=== PATIENT | female | born 1945 | race Caucasian/White ===

== ENCOUNTER → 2020-03-19 09:31 | Outpatient (CLI) | payer MEDICARE, SELFPAY ==
[2020-03-19 11:13] LABS: Hematocrit 44.9 % (37-47); Hemoglobin 14.1 g/dL (12.0-15.0); Mean Corp Hgb Conc 31.4 g/dL (32-36); Mean Corpuscular Volume 92.2 fL (81-99); Mean Platelet Vol. 9.7 fl (6.2-12.0); Platelet Count 218 K/mm3 (150-450); RBC Distribution Width CV 16.8 % (11.6-14.6); RBC Distribution Width SD 56.7 fl (35.1-43.9); Red Blood Count 4.87 M/mm3 (4.2-5.4); White Blood Count 6.9 K/mm3 (4.4-11.0)
[2020-03-19 11:35] LABS: Hemoglobin A1c 5.1 % (3.8-5.6)
[2020-03-19 11:43] LABS: ALB/GLOB Ratio 0.6 RATIO (0.9-2.4); AST(SGOT) 18 U/L (15-37); Alanine Aminotransfer ALT/SGPT 13 U/L (13-56); Albumin, Serum 2.8 g/dL (3.2-5.0); Alkaline Phosphatase 139 U/L (45-117); Anion Gap 6 (5-15); BUN 12 mg/dL (7-18); BUN/Creat Ratio 16.5 RATIO (10-20); Calcium,Total 8.6 mg/dL (8.5-10.1); Chloride 102 mmol/L (98-107); Cholesterol 178 mg/dL (200); Creatinine, Serum 0.73 mg/dL (0.55-1.02); EST Glomerular Filtration Rate 83 mL/min (>60); Est Glom Filt Rate - Afr Amer 101 mL/min (>60); Globulin 4.7 g/dL (2.2-4.2); Glucose 97 mg/dL (74-106); High Density Lipoprotein 38 mg/dL; Potassium 3.5 mmol/L (3.5-5.1); Protein, Total 7.5 g/dL (6.4-8.2); Sodium Level 138 mmol/L (136-145); Thyroid Stim Hormone (TSH) 9.78 uIU/mL (0.358-3.74); Triglycerides 160 mg/dL; Very Low Density Lipoprotein 32 mg/dL (5-40)
[2020-03-20 05:07] LABS: Hepatitis C Ab <0.1 s/co ratio (0.0-0.9)
== END ==
DX: Z11.59 Encounter for screening for other viral diseases (principal); R63.4 Abnormal weight loss; Z13.220 Encounter for screening for lipoid disorders; E03.9 Hypothyroidism, unspecified
CPT/HCPCS: 36415; 80053; 80061; 83036; 84443; 85027; 86803; 86804

== ENCOUNTER 2020-04-23 07:03 | Emergency (ER) | payer MEDICARE, SELFPAY ==
[2020-04-23 07:06] VITALS: BP 146/71; PULSE 118; RESP 24; TEMP 36.8; O2SAT 100; BMI 21.7
--- NOTE | 2020-04-23 07:43 | ED.VIS.GEN ---
History of Present Illness Chief Complaint: Upper Extremity Injury Informant: Patient Narrative: 75-year-old female presenting with right arm pain. She states this is chronically painful. Patient states that she was having difficulty getting off of the toilet this morning. Her son helped her up and caused worse pain in her right arm. She denies any other direct trauma. She denies paresthesias. Patient took nothing for pain prior to arrival. Past Medical History Primary Care Physician: KAREN ARREOLA [Other] Prior records reviewed: Yes Surgical History: noncontributory Lives: With Family Smoking Status: Never smoker Alcohol: None Drugs: None Review of Systems General: Denies: Chills, Fever, Sweats Eyes: Denies: Visual changes - bilaterally, Diplopia ENT: Denies: Rhinorrhea, Sore throat Cardiovascular: Denies: Chest pain, Palpitations Respiratory: Denies: Dyspnea, Cough, Dyspnea on exertion Gastrointestinal: Denies: Abdominal pain, Nausea, Vomiting, Diarrhea, Melena, Hematochezia Genitourinary: Denies: Dysuria, Hematuria, Frequency Musculoskeletal: Reports: Extremity Pain. Denies: Arthralgias, Neck pain, Swelling - Right arm pain Skin: Reports: Rash, Abscess Neurological: Denies: Headache, Parasthesia, Numbness Psych: Denies: Depression, Anxiety Physical Exam Vital Signs/Narrative: Vital Signs Temp Pulse Resp BP Pulse Ox 04/23/20 07:06 98.3 F 118 H 24 H 146/71 H 100 Inital Vital Signs reviewed: Yes General: Well nourished, No Acute Distress Head: Normocephalic, Atraumatic Eyes: Perrl, EOMI ENT: Moist mucous membranes, No rhinorrhea Cardiovascular: Regular rate, Regular rhythm Respiratory: No distress, CTA bilaterally Extremities: - - Tenderness to palpation right posterior upper arm. No deformity. No rash. No crepitance. Skin: Normal color, No rash. Negative for: Cyanosis, Diaphoresis Neurological: Alert, Oriented x3 Psychological: Normal affect, Normal Mood Diagnostic/Tx/Re-eval - Medical Decision Making Patient seen and evaluated on arrival for right arm pain. She states this is purely from her son trying to help her up. She states is chronically painful. There is no signs of trauma. Right humerus x-ray interpreted by myself shows no acute process. Radiology does agree. Patient was given a Lidoderm patch for her pain. She be discharged home in stable condition. Impression: Right arm strain ED Disposition - Plan for ED Patient: Disposition: Home or Assisted Living Instructions: ED Muscle Strain, Extremity Referrals: KAREN ARREOLA [Other]
--- NOTE | 2020-04-23 08:00 | RAD_ITS ---
STUDY: X-RAY - RIGHT HUMERUS REASON FOR EXAM: Female, 75 years old. CHRONIC PAIN- WORSE TODAY SINCE SON TRIED LIFTING HER FROM THE FLOOR TECHNIQUE: 2 view(s) of the humerus. COMPARISON: None. FINDINGS: Normal visualized humerus. There is no demonstrated fracture or osseous destructive process. There is no demonstrated soft tissue abnormality. RAD/Humerus min 2 Views IMPRESSION: Normal x-ray examination of the humerus. Electronically Signed: Jasiel Pradhan MD at 8:13 EST , Service support ,
[2020-04-23] MEDS: Lidocaine 5% Patch 1 PATCH TOPICAL (08:13)
[2020-04-23 08:44] VITALS: BP 137/68; PULSE 92; RESP 15; O2SAT 94
== END 2020-04-23 10:51 | disposition home or self-care (01) ==
PROVIDERS: Emergency Provider Student in an Organized Health Care Education/Training Program
DX: S46.911A Strain of unspecified muscle, fascia and tendon at shoulder and upper arm level, right arm, initial encounter (principal); X50.9XXA Other and unspecified overexertion or strenuous movements or postures, initial encounter; Y93.9 Activity, unspecified; Y92.002 Bathroom of unspecified non-institutional (private) residence as the place of occurrence of the external cause; Y99.9 Unspecified external cause status; G89.29 Other chronic pain
CPT/HCPCS: 73060; 99285

== ENCOUNTER 2020-04-25 12:08 | Inpatient (IN) | payer MEDICARE, MEDICAID, SELFPAY ==
[2020-04-25] VITALS (18 sets, daily range): BP systolic 97–141; BP diastolic 49–81; PULSE 102–117; RESP 16–32; TEMP 36.8–37.1; O2SAT 93–99; BMI 22.2; BMI 21.3
--- NOTE | 2020-04-25 12:26 | ED.RN ---
pt arrives to ed via ems. pt states she is currently homeless living with her son in a motel. per patient son is able to provide adequate care. pt arrives in same clothes from prior visit to ed. when asked about person hygiene she states that she hasn't been able to shower since last visit. consult with hospital correctional counselor/case manager placed. Lashanda Levin rn [id number]
--- NOTE | 2020-04-25 13:14 | EKG12_ITS ---
Test Reason : Blood Pressure : / mmHG Vent. Rate : 105 BPM Atrial Rate : 105 BPM P-R Int : 152 ms QRS Dur : 090 ms QT Int : 326 ms P-R-T Axes : 083 057 065 degrees QTc Int : 430 ms Sinus tachycardia with Premature atrial complexes Nonspecific ST & T wave abnormality Abnormal ECG Confirmed by MARU FLANAGAN, JUAN LUIS ([id number]), supervising editor news reel RUDY WHITTAKER ([id number]) on 04/28/2020 10:27:27 AM Referred By: DOMENIC Confirmed By:JUAN LUIS MAHONEY MD
--- NOTE | 2020-04-25 13:14 | RAD_ITS ---
STUDY: X-RAY CHEST REASON FOR EXAM: Female, 75 years old. TACHYCARDIA TECHNIQUE: AP COMPARISON: None. FINDINGS: EKG leads project over the chest. Lungs are underexpanded with elevation of left hemidiaphragm. Coarsening of the central pulmonary markings but no airspace consolidation. There is no demonstrated pleural abnormality. Normal size heart. Normal mediastinum and leslie. Normal visualized pulmonary arteries. Normal visualized aortic arch and descending thoracic aorta. There is demineralization of the osseous structures. Normal visualized ribs, clavicles, and shoulders. There is no demonstrated abnormality of the visualized soft tissue structures of the upper abdomen. RAD/Chest 1 View (Portable) IMPRESSION: No airspace consolidation or pleural effusion. Hypoinflation. Electronically Signed: Prince Laws MD (Brooks) at 14:25 EST , Service support ,
--- NOTE | 2020-04-25 13:26 | NURSING ---
NO PREVIOUS EKG DONE IN THE SYSTEM
--- NOTE | 2020-04-25 13:27 | ED.RN ---
Daughter chuyita called back. health history given over the phone. daughter spoke of addition concerns for patients self care. states she is drinking only soda and chocolate milk. daughter states she is also not eating. concerns brought attention. ramón boo rn [id number]
[2020-04-25] MEDS: 0.9% Normal Saline 1,000 ML 999 ML IV ×3 (13:57→17:44)
[2020-04-25 13:59] LABS: Absolute Lymphocyte Count 0.55 X10^3/uL (0.83-4.51); Absolute Neutrophil Count 14.7 X10^3/uL (2.0-7.7); Basophil# 0.05 X10^3/uL; Basophil% 0.3 % (0-1); Eosinophil# 0.11 X10^3/uL; Eosinophils% 0.7 % (0-5); Hemoglobin 11.6 g/dL (12.0-15.0); Lymphocyte # 0.55 X10^3/ul (4.0); Lymphocyte % 3.4 % (19-41); Mean Corp Hgb Conc 31.4 g/dL (32-36); Mean Corpuscular Hgb 28.3 pg (27.0-32.0); Mean Corpuscular Volume 90.2 fL (81-99); Mean Platelet Vol. 9.7 fl (6.2-12.0); Monocyte# 0.55 X10^3/uL; Monocyte% 3.4 % (0-10); NRBC Flagged by Analyzer 0 % (0-5); Neutrophil # 14.72 X10^3/uL (2.7-7.7); POSITIVE DIFFERENTIAL YES; Platelet Count 383 K/mm3 (150-450); RBC Distribution Width CV 17.1 % (11.6-14.6); RBC Distribution Width SD 56.9 fl (35.1-43.9); White Blood Count 16.2 K/mm3 (4.4-11.0)
[2020-04-25 14:03] LABS: Differential Indicated SCAN CRITERIA MET
[2020-04-25 14:16] LABS: ALB/GLOB Ratio 0.3 RATIO (0.9-2.4); AST(SGOT) 31 U/L (15-37); Alanine Aminotransfer ALT/SGPT 13 U/L (13-56); Albumin, Serum 1.7 g/dL (3.2-5.0); Alkaline Phosphatase 110 U/L (45-117); Anion Gap 8 (5-15); BUN 36 mg/dL (7-18); CPK Total, Creatine Kinase 62 U/L (26-192); Calcium,Total 9.3 mg/dL (8.5-10.1); Chloride 97 mmol/L (98-107); Creatinine, Serum 1.06 mg/dL (0.55-1.02); EST Glomerular Filtration Rate 54 mL/min (>60); Est Glom Filt Rate - Afr Amer 65 mL/min (>60); Estimated Creatinine Clearance 40.82 ml/min; Globulin 6.4 g/dL (2.2-4.2); Glucose 114 mg/dL (74-106); Potassium 4.1 mmol/L (3.5-5.1); Protein, Total 8.1 g/dL (6.4-8.2); Sodium Level 131 mmol/L (136-145)
[2020-04-25 14:17] LABS: Lactic Acid 3.8 mmol/L (0.4-1.9)
[2020-04-25 14:24] LABS: Differential Comment SCANNED; Erythrocyte Sedimentation Rate > 130 mm/hr (0-30)
--- NOTE | 2020-04-25 14:53 | ED.VIS.GEN ---
History of Present Illness Chief Complaint: Upper Extremity Injury Informant: Patient Onset: Days Context: Gradual Onset Timing: Continuous Narrative: Is a 75-year-old female with history of fibromyalgia and anxiety presenting with worsening right arm pain. Patient thinks it is a flareup of her fibromyalgia. States is worse with movement or direct palpation. She not take anything for pain at home. Patient is currently living in a hotel with her . Her daughter did call in stating there is concern for ability for her to care for herself. Patient denies any fever, chills, numbness, tingling, nausea or any other systemic symptoms. She was seen yesterday and had x-ray did not show any acute process. Patient was given a Lidoderm patch discharged home. She is requesting another Lidoderm patch. Past Medical History - Allergies and Home Meds Allergies/Adverse Reactions: Allergies No Known Allergies Allergy (Verified 04/25/20 13:47) Past Medical History: - - Anxiety, fibromyalgia Surgical History: noncontributory Smoking Status: Never smoker - Family History Maternal Family History: Reports: Cancer - breast Paternal Family History: Reports: - - pt did not know her father Review of Systems General: Reports: Malaise. Denies: Chills, Fever, Sweats Eyes: Denies: Visual changes - bilaterally, Diplopia ENT: Denies: Rhinorrhea, Sore throat Cardiovascular: Denies: Chest pain, Palpitations Respiratory: Denies: Dyspnea, Cough, Dyspnea on exertion Gastrointestinal: Denies: Abdominal pain, Nausea, Vomiting, Diarrhea, Melena, Hematochezia Genitourinary: Denies: Dysuria, Hematuria, Frequency Musculoskeletal: Reports: Extremity Pain - Right arm. Denies: Back pain Skin: Denies: Rash, Wounds Neurological: Denies: Headache, Weakness, Numbness Physical Exam Vital Signs/Narrative: Vital Signs Temp Pulse Resp BP Pulse Ox 04/25/20 14:31 117 H 18 116/70 98 04/25/20 14:19 98.6 F 117 H 16 116/70 99 04/25/20 13:47 98.4 F 04/25/20 13:45 116 H 32 H 98 04/25/20 12:10 98.2 F 114 H 16 127/73 H 98 Inital Vital Signs reviewed: Yes General: Well nourished, Well developed, No Acute Distress Head: Normocephalic, Atraumatic Eyes: Perrl, EOMI ENT: No rhinorrhea, Dry mucous membranes Neck: Supple, Nontender Cardiovascular: Regular rhythm, Tachycardia, Murmur Respiratory: No distress, CTA bilaterally, Chest nontender Abdomen: Soft, Nontender, Nondistended, Normal bowel sounds Back: Nontender, Normal Inspection Extremities: No edema, Tenderness, Edema, - - Diffuse tenderness of the right arm from shoulder to forearm, preserved range of motion of the joints. No obvious joint effusion noted. Skin: Rash - Erythema and induration of the dorsal aspect of the right arm from shoulder to forearm. No purulence appreciated. Neurological: Alert, Oriented x3, Cranial nerves II-XII grossly intact, Normal Strength, Normal Sensation Psychological: Normal Mood, - - Flat affect Diagnostic/Tx/Re-eval Chest X-Ray - ED: 1 View Clinical Impression(s) from Imaging Studies Chest X-Ray 04/25/20 13:14 IMPRESSION: No airspace consolidation or pleural effusion. Hypoinflation. Electronically Signed: Prince Laws MD (Brooks) at 14:25 EST , Service support , Laboratory Data 04/25/20 04/25/20 04/25/20 13:40 13:40 13:40 WBC 16.2 H RBC 4.10 L Hgb 11.6 L Hct 37.0 MCV 90.2 MCH 28.3 MCHC 31.4 L RDW Std Deviation 56.9 H RDW Coeff of Tashia 17.1 H Plt Count 383 MPV 9.7 Immature Gran % (Auto) 1.200 H Neut % (Auto) 91.0 H Lymph % (Auto) 3.4 L Braxton % (Auto) 3.4 Eos % (Auto) 0.7 Baso % (Auto) 0.3 Absolute Neuts (auto) 14.7 H Absolute Lymphs (auto) 0.55 L Nucleated RBC % 0 Differential Comment SCANNED ESR > 130 H PT Cancelled INR Cancelled APTT Cancelled Sodium 131 L Potassium 4.1 Chloride 97 L Carbon Dioxide 26.0 Anion Gap 8 BUN 36 H Creatinine 1.06 H Estim Creat Clear Calc 40.82 Est GFR (MDRD) Af Amer 65 Est GFR (MDRD) Non-Af 54 L BUN/Creatinine Ratio 34.0 H Glucose 114 H Lactic Acid Calcium 9.3 Total Bilirubin 0.40 AST 31 ALT 13 Alkaline Phosphatase 110 Total Creatine Kinase 62 C-React Prot Ext Range 385.00 H Total Protein 8.1 Albumin 1.7 L Globulin 6.4 H Albumin/Globulin Ratio 0.3 L 04/25/20 04/25/20 13:40 14:31 WBC RBC Hgb Hct MCV MCH MCHC RDW Std Deviation RDW Coeff of Tashia Plt Count MPV Immature Gran % (Auto) Neut % (Auto) Lymph % (Auto) Braxton % (Auto) Eos % (Auto) Baso % (Auto) Absolute Neuts (auto) Absolute Lymphs (auto) Nucleated RBC % Differential Comment ESR PT 18.4 H INR 1.6 APTT 39.2 H Sodium Potassium Chloride Carbon Dioxide Anion Gap BUN Creatinine Estim Creat Clear Calc Est GFR (MDRD) Af Amer Est GFR (MDRD) Non-Af BUN/Creatinine Ratio Glucose Lactic Acid 3.8 H* Calcium Total Bilirubin AST ALT Alkaline Phosphatase Total Creatine Kinase C-React Prot Ext Range Total Protein Albumin Globulin Albumin/Globulin Ratio - Rhythm Strip Rhythm Strip: Sinus Tach Rate: 105 Ectopy: PAC(s) - EKG Initial EKG Interpretation: Sinus Tachycardia, - - Tachycardia with PACs at a rate of [address] segments Normal intervals - Medical Decision Making Patient is a 75-year-old female with history of anxiety and fibromyalgia presenting with right arm pain. On evaluation patient arm appears to have significant cellulitis with associated induration and she is tachycardic. My concern is for sepsis. Patient is a leukocytosis as well as an elevated lactate and be treated for severe sepsis. She is given a 30 cc/kg fluid bolus and started on Vanco and Zosyn. She will be admitted to the hospital for further treatment. Patient is agreeable with this plan. I do agree that social work consult is indicated as I do wonder patient has capacity to truly care for herself. Patient remains in the ICU as she does have severe sepsis. She does not have associated joint effusion or deformity and I do not think this is a septic joint at this time. Hospitalist consulted orthopedics. Case discussed with orthopedics and I did order a CTA of the extremity to aid in orthopedic evaluation. - Critical Care Time Critical care time (excluding procedures): 30-74 minutes - 35, Arranging Admission or Transfer - Severe sepsis requiring fluids and frequent monitoring. Admission to ICU. ED Disposition - Plan for ED Patient: Disposition: Acute Care Hospital [facility] Diagnosis: Severe sepsis, Right arm cellulitis
[2020-04-25 14:54] LABS: International Normalized Ratio 1.6; Prothrombin Time (Protime)PT. 18.4 SECONDS (11.7-14.9)
[2020-04-25 14:55] LABS: Partial Thromboplast Time 39.2 Seconds (24.1-36.2)
[2020-04-25] MEDS: Lidocaine 5% Patch 1 PATCH TOPICAL (14:56)
--- NOTE | 2020-04-25 15:14 | PCM.HP.STD ---
<Reginaldo Oreilly PA - Last Filed: 04/25/20 15:14> History of Present Illness Date of Admission: 04/25/20 Chief Complaint: right arm pain The patient is a 75 year old F with pmhx of depression and sleep apnea who presents to the ER with c/o right arm pain. She states this began three days ago. She states she has an infection because she is being bit by bed bugs. She lives in a motel with her son as she is homeless. She has erythema and pain from the forearm near the hand continuous through across the elbow, up the posterior proximal extremity near to the shoulder. She has 9/10 pain. She is unable to fully flex or extend her elbow 2/2 pain. She denies subjective fever/chills. She has no cough, sob, nausea, vomiting, diarrhea. She denies prior skin infections or hx MRSA. She denies a hx of joint surgery. [] Past Medical History Allergies No Known Allergies Allergy (Verified 04/25/20 13:47) Home Medications: Ambulatory Orders Medication Instructions Recorded ALPRAZolam [Xanax] 0.5 mg PO BID PRN PRN 04/23/20 Zolpidem Tartrate [Ambien] 10 mg PO QHS 04/23/20 Surgical History: appendectomy, hysterectomy Psychiatric History: No pertinent psych hx Lives: Homeless - pt living with son in [facility] Smoking Status: Never smoker Tobacco Use: Secondhand Alcohol: None Drugs: None - *Family History Maternal History Items: Cancer - breast Paternal History Items: - - pt did not know her father Review of Systems Constitutional: Reports: Weakness, Fatigue. Denies: Chills, Fever, Weight Change HEENT: Denies: Head Aches, Sinus Congestion, Sinus Drainage Cardiovascular: Denies: Chest Pain, Light Headedness, Palpitations Respiratory: Denies: Cough, Shortness of Breath, Shortness of breath at rest, Sputum production Gastrointestinal: Denies: Abdominal Pain, Diarrhea, Nausea, Vomiting Genitourinary: Denies: Dysuria, Hesitancy, Urgency Musculoskeletal: Reports: Arm Pain, Joint Pain, Joint swelling, Joint Tenderness Skin: Reports: Skin Changes - right posterior arm erythema. Denies: Rash, Wounds Neurological: Denies: Numbness, Tingling, Focal weakness Psychiatric: Denies: Anxiety, Depression, Homicidal Ideations, Suicidal Ideations Hematologic/ Lymphatic: Denies: Easy Bruising, Easy Bleeding VTE Information - Inpt Only VTE Present on Admission: No VTE Mechan Device Prophylaxis: None VTE Pharm Prophylaxis ordered?: Yes - Physical Exam Vitals/I&O's: Vital Signs Temp Pulse Resp BP Pulse Ox 98.6 F 117 H 18 116/70 98 04/25/20 14:19 04/25/20 14:31 04/25/20 14:31 04/25/20 14:31 04/25/20 14:31 Oxygen Delivery Method Room Air Weight: 129 lb 10.109 oz Body Mass Index (BMI) 22.2 General: Alert, Oriented x3, Cooperative HEENT: Atraumatic, PERRLA, EOMI, Normocephalic Neck: Supple, No JVD, Negative Carotid Bruits Lungs: Clear to auscultation, Normal air movement Cardiovascular: Regular rate, No murmurs Abdomen: Bowel Sounds Present, Soft, Non Tender Extremities: No edema, Capillary Refill Less than 3 Seconds Skin: No rashes, No breakdown Musculoskeletal: No Tenderness to Palpation of Joints or Extremities Neurological: Cranial nerves II-XII grossly intact Psych/Mental Status: Normal Affect, Appropriate, Alert and oriented to time, place, person, mood and affect Laboratory Results 04/25/20 13:40: WBC 16.2 H, RBC 4.10 L, Hgb 11.6 L, Hct 37.0, MCV 90.2, MCH 28.3, MCHC 31.4 L, RDW Std Deviation 56.9 H, RDW Coeff of Tashia 17.1 H, Plt Count 383, MPV 9.7, Immature Gran % (Auto) 1.200 H, Neut % (Auto) 91.0 H, Lymph % (Auto) 3.4 L, [place]ata[place]oula % (Auto) 3.4, Eos % (Auto) 0.7, Baso % (Auto) 0.3, Absolute Neuts (auto) 14.7 H, Absolute Lymphs (auto) 0.55 L, Nucleated RBC % 0, Differential Comment SCANNED, ESR > 130 H 04/25/20 13:40: PT Cancelled, INR Cancelled, APTT Cancelled 04/25/20 13:40: Sodium 131 L, Potassium 4.1, Chloride 97 L, Carbon Dioxide 26.0, Anion Gap 8, BUN 36 H, Creatinine 1.06 H, Estim Creat Clear Calc 40.82, Est GFR (MDRD) Af Amer 65, Est GFR (MDRD) Non-Af 54 L, BUN/Creatinine Ratio 34.0 H, Glucose 114 H, Calcium 9.3, Total Bilirubin 0.40, AST 31, ALT 13, Alkaline Phosphatase 110, Total Creatine Kinase 62, C-React Prot Ext Range 385.00 H, Total Protein 8.1, Albumin 1.7 L, Globulin 6.4 H, Albumin/Globulin Ratio 0.3 L 04/25/20 13:40: Lactic Acid 3.8 H* 04/25/20 14:31: PT 18.4 H, INR 1.6, APTT 39.2 H Current Medications Sodium Chloride () 1,000 mls @ 999 mls/hr IV .Q1H1M ELISE; Protocol Stop: 04/25/20 16:45 Vancomycin HCl 1,500 mg/ (Sodium Chloride) 530 mls @ 250 mls/hr IV X1 ONE Stop: 04/25/20 17:52 Assessment/Plan 1. Acute sepsis 2/2 possible septic arthritis, RUE cellulitis - I am concerned for septic arthritis as the cellulitis crosses the elbow and she has severe pain, limited range of motion at the elbow, and markedly elevated ESR and CRP. Lactate is 3.8 and she has leukocytosis. I contacted Dr. Castro who requested a CT of the elbow. She will be admitted and placed on Vanc/Zosyn. Consult ID, obtain blood cultures. Pt denies prior hx cellulitis or MRSA. 2. Bed bugs and Homelessness - likely leading to cellulitis above. Pt is living in a motel and has observed bed bugs. Pt will need isolation precautions and rigging up worker evaluation. 3. Anx - continue home meds 4. CHANTEL? - pt states she has CHANTEL and that it is treated with ambien which is not an appropriate therapy, so I am suspicious as to whether she actually has been formally diagnosed with sleep apnea or she is confusing this with something like insomnia. DVT ppx: hold chemoppx until surgical evaluation DC planning: SW consult, homelessness, bed bugs, debility, PTOT evals. May is unkempt, malodorous, frail, has multiple bug bites, and I am concerned she is not appropriately caring for herself. This patient was seen by Reginaldo Oreilly PA-C under the supervision of Dr. Madrid. <Loreto Madrid - Last Filed: 04/25/20 15:58> History of Present Illness The patient is a 75 year old F [] Past Medical History Allergies No Known Allergies Allergy (Verified 04/25/20 13:47) - Physical Exam Vitals/I&O's: Vital Signs Temp Pulse Resp BP Pulse Ox 98.6 F 117 H 18 116/70 98 04/25/20 14:19 04/25/20 14:31 04/25/20 14:31 04/25/20 14:31 04/25/20 14:31 Oxygen Delivery Method Room Air Weight: 58.8 kg Body Mass Index (BMI) 22.2 Intake and Output for Last 24 Hours 04/23/20 04/24/20 04/25/20 23:59 23:59 23:59 Intake Total 1006.67 / 1006.67 Balance 1006.67 / 1006.67 Laboratory Results 04/25/20 13:40: WBC 16.2 H, RBC 4.10 L, Hgb 11.6 L, Hct 37.0, MCV 90.2, MCH 28.3, MCHC 31.4 L, RDW Std Deviation 56.9 H, RDW Coeff of Tasiha 17.1 H, Plt Count 383, MPV 9.7, Immature Gran % (Auto) 1.200 H, Neut % (Auto) 91.0 H, Lymph % (Auto) 3.4 L, Catahoula % (Auto) 3.4, Eos % (Auto) 0.7, Baso % (Auto) 0.3, Absolute Neuts (auto) 14.7 H, Absolute Lymphs (auto) 0.55 L, Nucleated RBC % 0, Differential Comment SCANNED, ESR > 130 H 04/25/20 13:40: PT Cancelled, INR Cancelled, APTT Cancelled 04/25/20 13:40: Sodium 131 L, Potassium 4.1, Chloride 97 L, Carbon Dioxide 26.0, Anion Gap 8, BUN 36 H, Creatinine 1.06 H, Estim Creat Clear Calc 40.82, Est GFR (MDRD) Af Amer 65, Est GFR (MDRD) Non-Af 54 L, BUN/Creatinine Ratio 34.0 H, Glucose 114 H, Calcium 9.3, Total Bilirubin 0.40, AST 31, ALT 13, Alkaline Phosphatase 110, Total Creatine Kinase 62, C-React Prot Ext Range 385.00 H, Total Protein 8.1, Albumin 1.7 L, Globulin 6.4 H, Albumin/Globulin Ratio 0.3 L 04/25/20 13:40: Lactic Acid 3.8 H* 04/25/20 14:31: PT 18.4 H, INR 1.6, APTT 39.2 H Current Medications Sodium Chloride () 1,000 mls @ 999 mls/hr IV .Q1H1M ELISE; Protocol Stop: 04/25/20 16:45 Vancomycin HCl 1,500 mg/ (Sodium Chloride) 530 mls @ 250 mls/hr IV X1 ONE Stop: 04/25/20 17:52 Assessment/Plan This patient was seen in conjunction with BECKY Simon. I have independently interviewed and examined the patient and reviewed pertinent historical, laboratory, and other data. Please refer to BECKY Simon note for his patient's presentation, findings, and recommendations. I have reviewed and his note and concur with his documentation 75-year-old female with past medical history of hypertension, not on medications, anxiety,? CHANTEL who comes in with pain in the right posterior and elbow. She denied any fever or chills or dizziness or palpitation. She admits to feeling weak. She lives in a motel with her son as she is homeless. She stated that a motel has a problem with bedbugs. She was bit by bedbugs a couple of days ago. She has extreme pain and redness follow-up for her or across to the elbow. She is unable to move the hand. Vitals in the ED were stable. Her admitting blood work showed WBC count of 16.2, hemoglobin 11.6, platelet count 383, ESR more than 130, INR 1.6, APTT 39.2, sodium 131, BUN 36, creatinine 1.06, baseline creatinine was less than 1, lactic acid 3.8, CRP 385 Physical Exam: Gen: Looks in some discomfort, not pale, not jaundiced, looks frail, pale CVS:HS I +II, regular, no murmurs RESP: Diminished at lung bases GI: BS present and normal, soft, nontender, no palpable organs EXT: Right upper extremity is swollen, erythema on the posterior aspect of the arm, elbow and forearm; worse around the posterior right arm ASSESSMENT: 1. Severe sepsis secondary to right upper extremity cellulitis; possible septic arthritis 2. Bedbug infestation 3. Anxiety disorder Plan: Admit to ICU, IV fluids, severe sepsis protocol IV vancomycin, IV Zosyn Follow-up on blood cultures, repeat blood work Consulty social work for discharge planning Inpatient E&M: [id number] Init Hosp L3
--- NOTE | 2020-04-25 15:48 | ED.RN ---
pt demostrated possible vessel rupture in site of blood draw. 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 ordered direct pressure applied to site for 5 mins and to hold zosyn. after 5 mins to start saline and see if blood draw site re-inflated with ns. shane, rn [id number]
--- NOTE | 2020-04-25 16:44 | ED.RN ---
fluid restarted. no further inflammation or swelling noted. site was bruised. dr consulted and medication reinitiated. ramón boo rn [id number]
[2020-04-25 17:47] LABS: Reflex Lactate? Y
--- NOTE | 2020-04-25 17:50 | ED.RN ---
report called to icu. [id number]
--- NOTE | 2020-04-25 17:59 | PCM.CONS.GEN ---
Reason for Consult Date of Consultation: 04/25/20 Reason for Consultation: elbow pain History of Present Illness: The patient is a 75 year old F with worsening right arm pain, was seen in er yesterday with neg xrays after son tried to lift her off the floor. has complicated social history and is unable to take care of herself/homeless. denies cp/sob/f/c/or other constitutional symptoms other than right arm pain which has gotten exceedingly worse in last day. has excoriations and does scratch them, per patient- bed bugs at a motel. ortho called by hospitalist to evaluated for septic elbow. [] Past Medical History Allergies No Known Allergies Allergy (Verified 04/25/20 13:47) Home Medications: Ambulatory Orders Medication Instructions Recorded Zolpidem Tartrate [Ambien] 10 mg PO QHS 04/23/20 Surgical History: appendectomy, hysterectomy Psychiatric History: No pertinent psych hx Lives: Homeless - pt [facility] with son [facility] Smoking Status: Never smoker Tobacco Use: Secondhand Alcohol: None Drugs: None - *Family History Maternal History Items: Cancer - breast Paternal History Items: - - pt did not know her father Review of Systems Constitutional: Denies: Chills, Fever, Weight Change HEENT: Denies: Head Aches, Sinus Congestion, Sinus Drainage Cardiovascular: Denies: Chest Pain, Palpitations Respiratory: Denies: Cough, Shortness of breath at rest, Sputum production Gastrointestinal: Denies: Abdominal Pain, Nausea, Vomiting Genitourinary: Denies: Dysuria Musculoskeletal: Reports: Arm Pain. Denies: Joint Pain, Joint Tenderness Skin: Denies: Rash, Wounds Neurological: Denies: Numbness, Tingling, Focal weakness Psychiatric: Denies: Anxiety, Depression, Homicidal Ideations, Suicidal Ideations Hematologic/ Lymphatic: Denies: Easy Bruising, Easy Bleeding Patient Problems: Active and Suspected Problems Severe sepsis (Acute) Right arm cellulitis (Acute) - Physical Exam Vitals/I&O's: Vital Signs Temp Pulse Resp BP Pulse Ox 98.4 F 113 H 20 H 106/60 97 04/25/20 16:56 04/25/20 16:56 04/25/20 16:56 04/25/20 16:56 04/25/20 16:56 Oxygen Delivery Method Room Air Weight: 129 lb 10.109 oz Body Mass Index (BMI) 22.2 Intake and Output for Last 24 Hours 04/23/20 04/24/20 04/25/20 23:59 23:59 23:59 Intake Total Balance General: Alert, Oriented x3, Cooperative HEENT: Atraumatic, PERRLA, EOMI, Normocephalic Neck: Supple, No JVD, Negative Carotid Bruits Lungs: Clear to auscultation, Normal air movement Cardiovascular: Regular rate, No murmurs Abdomen: Bowel Sounds Present, Soft, Non Tender Extremities: No edema, Capillary Refill Less than 3 Seconds Skin: No rashes, No breakdown Musculoskeletal: Tenderness - right arm, excoriations on other limbs, erythema demarcated and dated, pain out of proportion to palpation, no signs of elbow or shoulder articular involvement, intact wrist rom-active and passive, pos rad pulse, less than 2 sec cr, upper extremity erythema Neurological: Cranial nerves II-XII grossly intact Psych/Mental Status: Normal Affect, Appropriate Laboratory Results 04/25/20 13:40: WBC 16.2 H, RBC 4.10 L, Hgb 11.6 L, Hct 37.0, MCV 90.2, MCH 28.3, MCHC 31.4 L, RDW Std Deviation 56.9 H, RDW Coeff of Tashia 17.1 H, Plt Count 383, MPV 9.7, Immature Gran % (Auto) 1.200 H, Neut % (Auto) 91.0 H, Lymph % (Auto) 3.4 L, [place] % (Auto) 3.4, Eos % (Auto) 0.7, Baso % (Auto) 0.3, Absolute Neuts (auto) 14.7 H, Absolute Lymphs (auto) 0.55 L, Nucleated RBC % 0, Differential Comment SCANNED, ESR > 130 H 04/25/20 13:40: PT Cancelled, INR Cancelled, APTT Cancelled 04/25/20 13:40: Sodium 131 L, Potassium 4.1, Chloride 97 L, Carbon Dioxide 26.0, Anion Gap 8, BUN 36 H, Creatinine 1.06 H, Estim Creat Clear Calc 40.82, Est GFR (MDRD) Af Amer 65, Est GFR (MDRD) Non-Af 54 L, BUN/Creatinine Ratio 34.0 H, Glucose 114 H, Calcium 9.3, Total Bilirubin 0.40, AST 31, ALT 13, Alkaline Phosphatase 110, Total Creatine Kinase 62, C-React Prot Ext Range 385.00 H, Total Protein 8.1, Albumin 1.7 L, Globulin 6.4 H, Albumin/Globulin Ratio 0.3 L 04/25/20 13:40: Lactic Acid 3.8 H* 04/25/20 14:31: PT 18.4 H, INR 1.6, APTT 39.2 H Assessment/Plan All Active Problems Severe sepsis (Acute) Right arm cellulitis (Acute) no signs/symptoms of septic joint or shoulder or elbow right arm cellulitis/hematoma- from bug bite vs hematoma from son trying to lift her does not involve elbow or shoulder joint on CT - see chart for further results I d/w [facility] for management of soft tissue cellulitis if antibiotics fail with slight concern for other etiologies of pain d/t labs,and study, etc and [facility] deferred treatment to tertiary care facility at this time discussed risks of morbidity and mortality regardless of intervention with patient and patient elects to transfer as well at this time, based on labs her lrinec score is 8, with progressing erythema above shoulder into back per hospitalist who saw patient a couple of hours ago- over 2.5 inches of expanding erythema despite getting vanc/zosyn IV needs close monitoring at tertiary care facility and gen surg/plastics mgmt ct scan with contrast pending d/w hospitalist- no MRI availability on weekends All questions answered. Patient in agreement of plan. any questions please call dr banda [phone]
--- NOTE | 2020-04-25 18:06 | CT_ITS ---
STUDY: CT right shoulder upper extremity WITHOUT CONTRAST REASON FOR EXAM: Female, 75 years old. Possible right shoulder infection RADIATION DOSAGE (If Supplied By Facility): CTDIvol = ( 24.58 ) mGy, DLP = ( 2233.65 ) mGycm TECHNIQUE: The patient was scanned in a multi detector CT scanner. High resolution imaging was performed. Images were obtained through the thoracic spine. Sagittal and coronal images were reconstructed. Individualized dose optimization techniques were used for this CT. COMPARISON: None available. FINDINGS: Right humerus is intact and located at the shoulder and elbow. Shoulder joint is normal without effusion. Periarticular soft tissues are normal. There is a 6 cm cm ill-defined soft tissue lesion in the left upper arm posterior subcutaneous compartment. There is extensive surrounding subcutaneous and deeper soft tissue edema extending inferiorly into the elbow and forearm. There is adjacent reactive axillary lymphadenopathy. Elbow joint is located without joint effusion. Proximal radius and ulna are intact. CT/Extremity Upper without Contra IMPRESSION: 1. Normal right shoulder joint, no joint infection. 2. Normal osseous structures. 3. Probably right posterior upper arm subcutaneous phlegmon or hematoma and diffuse tissue edema. Electronically Signed: Noreen Yates MD at 18:48 EST Tel , Service support ,
--- NOTE | 2020-04-25 18:45 | PCM.RX.CS ---
Consult Pharmacy has been consulted to manage selected antiobiotic: Vancomycin Type of Consult: New start Prior Doses of Antibiotics Received/Current Regimen: Medications Discontinued Medications Vancomycin HCl 1,500 mg/ (Sodium Chloride) 530 mls @ 250 mls/hr IV X1 ONE Stop: 04/25/20 17:52 Last Admin: 04/25/20 17:08 Dose: 250 mls/hr Documented by: Labs: Sodium 131 mmol/L (136-145) L 04/25/20 13:40 Potassium 4.1 mmol/L (3.5-5.1) 04/25/20 13:40 Chloride 97 mmol/L (98-107) L 04/25/20 13:40 Carbon Dioxide 26.0 mmol/L (21.0-32.0) 04/25/20 13:40 Anion Gap 8 (5-15) 04/25/20 13:40 BUN 36 mg/dL (7-18) H 04/25/20 13:40 Creatinine 1.06 mg/dL (0.55-1.02) H 04/25/20 13:40 Est GFR (MDRD) Af Amer 65 mL/min (>60) 04/25/20 13:40 Est GFR (MDRD) Non-Af 54 mL/min (>60) L 04/25/20 13:40 BUN/Creatinine Ratio 34.0 RATIO (10-20) H 04/25/20 13:40 Glucose 114 mg/dL (74-106) H 04/25/20 13:40 Weight used for dosin kg Estimated Creatinine Clearance: 41 mL/min Goal Trough: 15-20 mcg/mL Pharmacy Plan for Drug Dosing: Vanc 1500mg IV x1 given in ED, 500mg IV q12h with trough prior to 4th dose per policy. Pharmacy Service will continue to monitor and adjust dosing as required. Follow-Up Labs: Trough Vancomycin - 04/27 @ 0530
[2020-04-25] MEDS: 0.9% Normal Saline 1,000 ML 150 ML IV (18:53)
--- NOTE | 2020-04-25 20:27 | DCINST_ITS ---
- Discharge Diagnoses Current Active Problems: Current Active and Chronic Problems Severe sepsis (Acute) Right arm cellulitis (Acute) Reason(s) for Visit for Discharge Instructions: Right upper arm cellulitis Allergies/Adverse Reactions: Allergies No Known Allergies Allergy (Verified 04/25/20 13:47) Medications to take at Discharge Zolpidem Tartrate [Ambien] 10 mg PO QHS 04/23/20 Primary Care Physician: KAREN ARREOLA [Other] Test Results: Test results from this visit will be discussed in further detail at your follow- up appointment, if applicable. Proposed Discharge Date: 04/25/20
--- NOTE | 2020-04-25 20:28 | PCM.DC.SUM ---
Discharge Date and Diagnosis - Problem List Patient Problems: Active and Suspected Problems Severe sepsis (Acute) Right arm cellulitis (Acute) Date of Admission: 04/25/20 Date of Discharge: 04/25/20 - Primary Discharge Diagnosis Acute Problems: Active Problems Severe sepsis (Acute) Right arm cellulitis (Acute) Suspected necrotizing fascitis Hospital Course and Treatment Imaging Results: 04/25/20 13:14 Chest 1 View (Portable) [RAD] Stat 04/25/20 18:06 Extremity Upper without Contra [CT] Urgent 04/25/20 18:26 CT Upper [Extremity Upper WITH Contrast] [CT] Stat Orthopedic consult Operations: None Procedures: None Summary of Care Provided: The patient is a 75 year old F past medical history of anxiety/depression, sleep apnea who presented with complaints of right arm pain and erythema. This started 3 days prior to admission. She is homeless and lives in a motel with his son. She states the homeless facility has a bedbug situation and she was bitten by a bedbug. She has pain and erythema from the right forearm to the upper, severe, unable to move her elbow on account of pain. She denies any fever or chills. Her vitals in the ED were stable except for tachycardia. Her WBC count was 16.2, hemoglobin 11.6, platelet count 383, INR 1.6, sodium 141, chloride 97, potassium 4.7, creatinine 1.06. Previous creatinine was less than 1. ESR was 130, lactic acid was 3.8, CRP was 385. Patient was started on IV vancomycin and Zosyn. She subsequently was admitted to ICU, managed on aggressive IV fluids. Orthopedics was consulted for concern of possible septic arthritis. CT of the upper extremities without contrast was significant for upper subcutaneous phlegmon or hematoma and diffuse tissue edema. CTA of the upper extremity with contrast was pending at time of note. Patient was reexamined and noted that the erythema was increasing. Subcutaneous edema and erythema was prominent more in the posterior shoulder. Orthopedic surgeon discussed concern for necrotizing fasciitis. Recommendations was made to transfer to tertiary center. Patient received IV clindamycin 900 mg x 1 after concern of necrotizing fasciitis was raised. Patient was accepted at [facility]. Patient Problems: Active and Suspected Problems Severe sepsis (Acute) Right arm cellulitis (Acute) Subjective: See H&P/admission note Objective: See H&P/admission note - Physical Exam Vitals/I&O's: Vital Signs Temp Pulse Resp BP Pulse Ox 98.8 F 102 H 27 H 118/54 L 94 04/25/20 18:35 04/25/20 19:57 04/25/20 19:30 04/25/20 19:30 04/25/20 19:30 Oxygen Delivery Method Room Air Weight: 58.1 kg Body Mass Index (BMI) 21.3 Intake and Output for Last 24 Hours 04/23/20 04/24/20 04/25/20 23:59 23:59 23:59 Intake Total 3630.00 / 3630.00 Balance 3630.00 / 3630.00 Laboratory Results 04/25/20 13:40: WBC 16.2 H, RBC 4.10 L, Hgb 11.6 L, Hct 37.0, MCV 90.2, MCH 28.3, MCHC 31.4 L, RDW Std Deviation 56.9 H, RDW Coeff of Tashia 17.1 H, Plt Count 383, MPV 9.7, Immature Gran % (Auto) 1.200 H, Neut % (Auto) 91.0 H, Lymph % (Auto) 3.4 L, [place] % (Auto) 3.4, Eos % (Auto) 0.7, Baso % (Auto) 0.3, Absolute Neuts (auto) 14.7 H, Absolute Lymphs (auto) 0.55 L, Nucleated RBC % 0, Differential Comment SCANNED, ESR > 130 H 04/25/20 13:40: PT Cancelled, INR Cancelled, APTT Cancelled 04/25/20 13:40: Sodium 131 L, Potassium 4.1, Chloride 97 L, Carbon Dioxide 26.0, Anion Gap 8, BUN 36 H, Creatinine 1.06 H, Estim Creat Clear Calc 40.82, Est GFR (MDRD) Af Amer 65, Est GFR (MDRD) Non-Af 54 L, BUN/Creatinine Ratio 34.0 H, Glucose 114 H, Calcium 9.3, Total Bilirubin 0.40, AST 31, ALT 13, Alkaline Phosphatase 110, Total Creatine Kinase 62, C-React Prot Ext Range 385.00 H, Total Protein 8.1, Albumin 1.7 L, Globulin 6.4 H, Albumin/Globulin Ratio 0.3 L 04/25/20 13:40: Lactic Acid 3.8 H* 04/25/20 14:31: PT 18.4 H, INR 1.6, APTT 39.2 H 04/25/20 19:33: Lactic Acid Pending Current Medications Acetaminophen (Acetaminophen 325 Mg Tablet) 650 mg PO Q6H PRN PRN PRN Reason: Pain Score 1-10/Temp > 100.7 F Al Hydroxide/Mg Hydroxide (Mag Hydrox/Al Hydrox/Simeth 30 Ml Udc) 30 ml PO Q6H PRN PRN PRN Reason: Gastric Burning Albuterol Sulfate (Albuterol 2.5 Mg/3 Ml Vial.Neb.) 2.5 mg INHALATION Q2H PRN PRN PRN Reason: SOB/Wheezing Famotidine (Famotidine 20 Mg Tablet) 20 mg PO BID [facility] Sodium Chloride () 1,000 mls @ 150 mls/hr IV .[id number] [facility] Last Admin: 04/25/20 18:53 Dose: 150 mls/hr Documented by: Piperacillin Sod/Tazobactam (Sod 3.375 gm/ Sodium Chloride) 50 mls @ 12.5 mls/hr IV Q8 [facility] Vancomycin IV Pharmacy to Dose (1 ea/ Sodium Chloride) 500 mls @ 250 mls/hr IV X1 PRN; Protocol PRN Reason: Rx to Dose Sodium Chloride () 250 mls @ 15 mls/hr IV .[id number] PRN PRN Reason: Saline Flush Sodium Chloride () 250 mls @ 15 mls/hr IV .[id number] PRN PRN Reason: Additional IVPB Infusion Vancomycin HCl () 500 mg in 100 mls @ 100 mls/hr IV Q12H [facility] Iopamidol (Contrast Allergy Safety Check) 0 ml IV X1 [facility] Nutritional Formula (Lactose Free) (Ensure Enlive 120 Ml Liquid) 120 ml PO 4X/DAY [facility] Ondansetron HCl (Ondansetron 4 Mg/2 Ml Vial) 4 mg IV Q8H PRN PRN PRN Reason: NAUSEA/VOMITING Ondansetron HCl (Ondansetron 4 Mg/2 Ml Vial) 4 mg IV Q8H PRN PRN PRN Reason: NAUSEA/VOMITING Oxycodone HCl (Oxycodone 5 Mg Tablet) 5 mg PO Q4H PRN PRN PRN Reason: Pain Score 4-10 Sodium Chloride (0.9% Saline Lock 10 Ml Syringe) 10 - 40 ml IV UD PRN PRN Reason: SALINE FLUSH Home Medications: Medications to take at Discharge Zolpidem Tartrate [Ambien] 10 mg PO QHS 04/23/20 Primary Care Physician: KAREN ARREOLA [Other] Disposition: Acute care Hospital Minutes spent on discharge:: 50 Patient Condition:: Guarded Medical Necessity - Tobacco Use Smoking Status: Never smoker Tobacco Use: Secondhand Meaningful Use Info Meaningful Use Diagnoses (Choose all that apply): None applicable Inpatient E&M: 05000 Disch Hosp
--- NOTE | 2020-04-25 20:45 | CT_ITS ---
ACR Level 3 findings have been noted. An addendum which confirms receipt of the report will follow. HISTORY: Right arm pain and swelling. Technique: Following the uneventful ministration of 100 ML of Isovue 300 contiguous helical images were obtained from the mandible through to the right forearm. 2-D reformats. [address] scan was performed about 2-1/2 hours earlier. The previous study demonstrated much improved resolution due to a smaller [id number], but was performed without the use of intravenous contrast. Findings: Within the soft tissues of the dorsum of the axilla, below the level of the scapula, the fluid collection described on the noncontrast study is again demonstrated. It does have some rim-enhancing margins. It is slightly better defined. It does not have rim-enhancing margins on all sides. I measure the fluid collection to be 6.2 x 6.2 x 5 cm. Appears to be confined to the fat. It does not cause erosion of bone or displacement muscle. Axillary adenopathy is present. A lymph node is present just anterior to the fluid collection. Indurated subcutaneous fat is present throughout the right arm into the right forearm. This disease is greater dorsally than it is ventrally. The disease appears mostly confined to the subcutaneous fat and less to the myofascial components of the right arm, but there are muscles and myofascial planes are involved. Flow is present within the right subclavian artery and vein as well as brachial artery and veins. Some glenohumeral arthritis. Acromioclavicular arthritis. Probable decreased bone mineral density. No acute rib lesions are perceived. There is plethoric pulmonary vascularity within the right lung. Within the liver, I believe it is the anterior segment of the right hepatic lobe, on series 2 image 108, there is a well-defined 18 mm hypodense lesion with a central density of 21 Hounsfield units. The right humeral head is well-seated within the right glenoid fossa. No osseous erosions are present. The elbow joint is mildly arthritic with some cortical sclerosis and joint space loss. Small osteophyte on the coronoid process of the olecranon. Visualized portions of the radius are normal. The gallbladder remains. Diverticulosis within the ascending colon. Atherosclerosis within the right internal iliac artery. External rotation of the right kidney without hydronephrosis. Body wall edema. CT/Extremity Upper WITH Contrast IMPRESSION: 6.2 x 6.2 x 5 cm partially rim enhancing fluid collection within the inferior posterior aspect of the right axilla with axillary adenopathy and an additional lymph node just anterior to the fluid collection. This is likely a subcutaneous phlegmon or hematoma. Due to the adenopathy in the additional indurated fat believe a phlegmon is the most likely etiology. Additional edema within the right arm and forearm consistent with cellulitis. 18 mm hypodense lesion within the liver of unknown etiology. Recommend comparison to any previous imaging. Differential diagnosis includes a benign cyst, hemangioma, and metastatic disease. Primary hepatocellular carcinomas within the differential as well but considered less likely. In the setting of right arm abscess and cellulitis, the possibility of an hepatic abscess is also within the differential but considered less likely If no previous imaging, consider multiphase CT or MRI. Individualized dose optimization techniques were used for this CT. at 2330 Reported and signed by: Shashi Gordon MD Electronically Signed: Shashi Gordon MD at 23:29 EST Tel , Service support ,
[2020-04-25 20:46] LABS: Lactic Acid 3.1 mmol/L (0.4-1.9)
[2020-04-25] MEDS: Contrast Allergy Safety Check IV (20:57)
[2020-04-25] MEDS: Famotidine 20 MG Tablet PO (21:00)
== END 2020-04-25 23:00 | disposition short-term general hospital (02) | DRG 871 ==
LOC: ED 13:04 → PCU 15:34 → ICU 17:00
PROVIDERS: Admitting Provider Internal Medicine; Emergency Provider Emergency Medicine; Visit Provider Internal Medicine
DX: A41.9 Sepsis, unspecified organism (principal); M72.6 Necrotizing fasciitis; L03.113 Cellulitis of right upper limb; R65.20 Severe sepsis without septic shock; F32.9 Major depressive disorder, single episode, unspecified; F41.9 Anxiety disorder, unspecified; M79.7 Fibromyalgia; B88.8 Other specified infestations; Z77.22 Contact with and (suspected) exposure to environmental tobacco smoke (acute) (chronic); Z59.0 Homelessness; Z90.710 Acquired absence of both cervix and uterus; G47.33 Obstructive sleep apnea (adult) (pediatric)
CPT/HCPCS: 36415; 71045; 73060; 73200; 73201; 80053; 82550; 83605; 85025; 85610; 85652; 85730; 86140; 87040; 93005; 99285; J7030; J7040; Q9967; A4216